=== PATIENT | female | born 1935 | race Caucasian/White ===

== ENCOUNTER 2016-05-02 19:22 | Emergency (ER) | payer MEDICARE, OTHER ==
[~2016-05-02] VITALS: Ht 165.1 cm; Wt 80.0 kg
[~2016-05-02 19:22] MED LIST: CALC500T42 PO; GLUC500C56 PO; METO50TA PO; PREM0.3T2 PO; TAB-TAB PO; VITA500T10 PO
[2016-05-02] MEDS ORDERED: LORazepam 2 MG/ML VIAL ONE (20:36)
[2016-05-02 20:41] VITALS: BP 186/83; PULSE 82; RESP 18; TEMP 98.5; O2SAT 99
[2016-05-02] MEDS ORDERED: ASPI325T PO (20:45)
[2016-05-02] MEDS ORDERED: LORazepam 2 MG/ML VIAL IM ONE (20:45)
[2016-05-02] MEDS ORDERED: METO50TA PO (20:45)
[2016-05-02] MEDS ORDERED: NAPR220T95 PO (20:45)
[2016-05-02] MEDS ORDERED: METO25TA3 PO (21:02)
[2016-05-02 21:32] LABS: AUTOMATED NEUTROPHIL # 5.6 TH/MM3 (1.8-7.7); BASOPHIL # 0.1 TH/MM3 (0-0.2); BASOPHIL % 0.9 % (0.0-2.0); EOSINOPHIL # 0.2 TH/MM3 (0-0.4); EOSINOPHIL % 1.7 % (0.0-4.0); HEMATOCRIT 39.7 % (35.0-46.0); HEMO FLAGS DIFF FINAL; LYMPH % 38.4 % (9.0-44.0); LYMPHOCYTE # 4.2 TH/MM3 (1.0-4.8); MEAN CELL VOLUME 95.8 FL (80.0-100.0); MEAN CORPUSCULAR HEMOGLOBIN 33.6 PG (27.0-34.0); MEAN CORPUSCULAR HGB CONC 35.1 % (32.0-36.0); MONO % 8.3 % (0.0-8.0); NEUT % 50.7 % (16.0-70.0); PLATELET COUNT 271 TH/MM3 (150-450); RED BLOOD COUNT 4.15 MIL/MM3 (4.00-5.30); RED CELL DISTRIBUTION WIDTH 13.7 % (11.6-17.2)
[2016-05-02 21:38] LABS: BLOOD, URINE NEG (NEG); COMMENT (UR) CULT NOT INDICATED; CULTURE IF INDICATED CULT NOT INDICATED; GLUCOSE,URINE NEG (NEG); KETONE, URINE NEG (NEG); MUCUS URINE FEW /lpf (OCC); NITRITE,URINE NEG (NEG); PH, URINE 6.5 (5.0-8.5); SQUAMOUS EPITHELIAL CELL URINE 1 /hpf (0-5); URINE COLOR YELLOW (YELLW/STRAW)
[2016-05-02 21:44] LABS: AMPHETAMINE, URINE NEG (NEG); BARBITURATES, URINE NEG (NEG); COCAINE, URINE NEG (NEG)
[2016-05-02 21:45] LABS: ACETAMINOPHEN LESS THAN 2.0 MCG/ML (10.0-30.0); ALKALINE PHOSPHATASE 78 U/L (45-117); ALT (GPT) 21 U/L (10-53); ANION GAP 10 MEQ/L (5-15); AST (GOT) 25 U/L (15-37); BICARBONATE 28.7 MEQ/L (21.0-32.0); BLOOD UREA NITROGEN 21 MG/DL (7-18); CHLORIDE 104 MEQ/L (98-107); GLOMERULAR FILTRATION RATE 50 ML/MIN (>89); SODIUM (NA) 143 MEQ/L (136-145); TOTAL BILIRUBIN ADULT 0.5 MG/DL (0.2-1.0)
[2016-05-02] MEDS ORDERED: METOPROLOL TARTRATE 25 MG TAB PO ONE (21:45)
--- NOTE | 2016-05-02 21:45 | PD ---
HPI Chief Complaint: Psychiatric Symptoms Time Seen by Provider: 20:31 Travel History International Travel<30 days: No Contact w/Intl Traveler<30days: No Traveled to known affect area: No History of Present Illness HPI 81yo F with PMH of HTN was brought in under Del Cid Act for suicidal ideation. She told her nurse from [facility] that she would take all of her pain pills to end her life if her care did not improve. Pt determined to be a threat to herself. Denies any complaints. Pt is very upset and yelling at staff so she was transferred from [facility] Past Medical History Arthritis: Yes Blood Disorders: No Cancer: No Cardiovascular Problems: No Diminished Hearing: No Endocrine: No Genitourinary: No Immune Disorder: No Implanted Vascular Access Dvce: Yes Musculoskeletal: Yes Neurologic: Yes Psychiatric: No Reproductive: No Respiratory: No Tetanus Vaccination: Unknown Past Surgical History Joint Replacement: Yes (RIGHT HIP) Neurologic Surgery: Yes (CERVICAL FUSION) Other Surgery: Yes Social History Alcohol Use: Yes (OCC WINE) Tobacco Use: No Substance Use: No Allergies-Medications (Allergen,Severity, Reaction): Coded Allergies: No Known Allergies (Verified , 03/04/13) Reported Meds & Prescriptions Reported Meds & Active Scripts Active Reported Metoprolol Tartrate 25 Mg Tab 12.5 Mg PO BID Aleve (Naproxen Sodium) 220 Mg Tab 220 Mg PO BID PRN Aspirin 325 Mg Tab 325 Mg PO DAILY Review of Systems Except as stated in HPI: all other systems reviewed are Neg Physical Exam Narrative Pt is refusing a physical exam. She does not appear to be in distress and no complaints. Data Data Last Documented VS Vital Signs Date Time Temp Pulse Resp B/P Pulse Ox O2 Delivery O2 Flow Rate FiO2 05/02/16 23:17 78 18 142/63 97 05/02/16 20:41 98.5 Orders Complete Blood Count With Diff (05/02/16 19:55) Comprehensive Metabolic Panel (05/02/16 19:55) Urinalysis - C+S If Indicated (05/02/16 19:55) Psych Screen (05/02/16 19:55) Drug Screen, Random Urine (05/02/16 19:55) Alcohol (Ethanol) (05/02/16 19:55) Salicylates (Aspirin) (05/02/16 19:55) Tylenol (Acetaminophen) (05/02/16 19:55) Lorazepam Inj (Ativan Inj) (05/02/16 20:45) Lorazepam Inj (Ativan Inj) (05/02/16 20:36) Metoprolol Tartrate (Lopressor) (05/02/16 21:45) Labs Laboratory Tests Test 05/02/16 05/02/16 20:40 20:45 Urine Color YELLOW Urine Turbidity HAZY Urine pH 6.5 Urine Specific [place] 1.020 Urine Protein NEG mg/dL Urine Glucose (UA) NEG mg/dL Urine Ketones NEG mg/dL Urine Occult Blood NEG Urine Nitrite NEG Urine Bilirubin NEG Urine Urobilinogen LESS THAN 2.0 MG/DL Urine Leukocyte Esterase TRACE Urine RBC LESS THAN 1 /hpf Urine WBC 1 /hpf Urine Squamous Epithelial 1 /hpf Cells Urine Mucus FEW /lpf Microscopic Urinalysis Comment CULT NOT INDICATED Urine Opiates Screen NEG Urine Barbiturates Screen NEG Urine Amphetamines Screen NEG Urine Benzodiazepines Screen POS Urine Cocaine Screen NEG Urine Cannabinoids Screen NEG White Blood Count 11.0 TH/MM3 Red Blood Count 4.15 MIL/MM3 Hemoglobin 13.9 GM/DL Hematocrit 39.7 % Mean Corpuscular Volume 95.8 FL Mean Corpuscular Hemoglobin 33.6 PG Mean Corpuscular Hemoglobin 35.1 % Concent Red Cell Distribution Width 13.7 % Platelet Count 271 TH/MM3 Mean Platelet Volume 8.8 FL Neutrophils (%) (Auto) 50.7 % Lymphocytes (%) (Auto) 38.4 % Monocytes (%) (Auto) 8.3 % Eosinophils (%) (Auto) 1.7 % Basophils (%) (Auto) 0.9 % Neutrophils # (Auto) 5.6 TH/MM3 Lymphocytes # (Auto) 4.2 TH/MM3 Monocytes # (Auto) 0.9 TH/MM3 Eosinophils # (Auto) 0.2 TH/MM3 Basophils # (Auto) 0.1 TH/MM3 CBC Comment DIFF FINAL Differential Comment Sodium Level 143 MEQ/L Potassium Level 4.1 MEQ/L Chloride Level 104 MEQ/L Carbon Dioxide Level 28.7 MEQ/L Anion Gap 10 MEQ/L Blood Urea Nitrogen 21 MG/DL Creatinine 1.06 MG/DL Estimat Glomerular Filtration 50 ML/MIN Rate Random Glucose 107 MG/DL Calcium Level 9.1 MG/DL Total Bilirubin 0.5 MG/DL Aspartate Amino Transf 25 U/L (AST/SGOT) Alanine Aminotransferase 21 U/L (ALT/SGPT) Alkaline Phosphatase 78 U/L Total Protein 7.5 GM/DL Albumin 4.1 GM/DL Salicylates Level LESS THAN 1.7 MG/DL Acetaminophen Level LESS THAN 2.0 MCG/ML Ethyl Alcohol Level LESS THAN 3 MG/DL MDM Medical Decision Making Medical Screen Exam Complete: Yes Emergency Medical Condition: Yes Differential Diagnosis Depression vs. delirium Narrative Course 81yo F with suicidal thoughts was brought here under Del Cid Act because she said she wants to end it all. VS stable. Pt is hypertensive and takes metoprolol which I gave her. Denies any complaints. Labs reviewed, no leukocytosis BUN/ creatinine mildly elevated at 21/1.06. UA negative. Culture not indicated. Alcohol, salicylate and acetaminophen negative. Benzodiazepine positive but I gave her ativan 1mg to calm her down. Pt was being a threat to herself and others. Pt is now more calm but still refusing physical exam. Del Cid Act lifted by psych. Diagnosis Primary Impression: Suicidal ideation Patient Instructions: General Instructions Departure Forms: Tests/Procedures Additional Instructions: Please return to the ED if symptoms worsen. Med/Other Pt SpecificInfo: No Change to Meds Disposition: 01 DISCHARGE HOME Condition: Stable Roslyn Roberson DO May 02, 2016 21:45
[2016-05-02 21:46] LABS: POTASSIUM 4.1 MEQ/L (3.5-5.1)
[2016-05-02 23:17] VITALS: BP 142/63
== END 2016-05-03 00:36 | disposition home or self-care (01) ==
LOC: NEPA 19:22
DX: R45.851 Suicidal ideations (principal); I10 Essential (primary) hypertension; M19.90 Unspecified osteoarthritis, unspecified site
CPT/HCPCS: 80053; 80307; 81001; 85025; 96372; 99283; J2060

== ENCOUNTER 2018-03-30 07:23 | Inpatient (IN) ==
[2018-03-30 09:19] LABS: Baso # (Auto) 0.1 th/mm3 (0.0-0.2); Baso % (Auto) 0.6 % (0.0-2.0); Eos # (Auto) 0.3 th/mm3 (0.0-0.4); Eos % (Auto) 2.6 % (0.0-4.0); Hematocrit 42.5 % (35.0-46.0); Lymph # (Auto) 4.6 th/mm3 (1.0-4.8); Lymph % (Auto) 44.4 % (9.0-44.0); Mean Corpuscular HGB Conc 32.9 % (32.0-36.0); Mean Corpuscular Volume 97.2 fL (80.0-100.0); Mean Platelet Volume 8.9 fL (7.0-11.0); Mono # (Auto) 0.6 th/mm3 (0.0-0.9); Mono % (Auto) 6.3 % (0.0-8.0); Neut # (Auto) 4.8 th/mm3 (1.8-7.7); Neut % (Auto) 46.1 % (16.0-70.0); Platelet Count 272 th/mm3 (150-450); Red Blood Count 4.37 mil/mm3 (4.00-5.30); Red Cell Distribution Width 14.7 % (11.6-17.2); White Blood Count 10.4 th/mm3 (4.0-11.0)
[2018-03-30 09:30] LABS: Alanine Aminotransferase 21 U/L (10-53); Albumin 3.8 g/dL (3.4-5.0); Anion Gap 6 meq/L (5-15); Aspartate Aminotransferase 24 U/L (15-37); Blood Urea Nitrogen 15 mg/dL (7-18); Calcium 8.6 mg/dL (8.5-10.1); Carbon Dioxide 28.4 meq/L (21.0-32.0); Chloride 109 meq/L (98-107); Glomerular Filtration Rate 68 mL/min (>89); Glucose,Random 89 mg/dL (74-106); Magnesium 2.5 mg/dL (1.5-2.5); Potassium 4.2 meq/L (3.5-5.1); Sodium 143 meq/L (136-145)
[2018-03-30 09:31] LABS: Alcohol 227 mg/dL (0-5)
[2018-03-30 09:40] LABS: Alkaline Phosphatase 91 U/L (45-117); Thyroid Stimulating Hormone 0.891 uIU/mL (0.358-3.740); Total Protein 7.5 g/dL (6.4-8.2)
--- NOTE | 2018-03-30 10:04 | ED ---
HPI General Chief complaint: Chest Pain Stated complaint: PSYCH/VCSO Time Seen by Provider: 03/30/18 08:35 Source: EMS Mode of arrival: EMS History of Present Illness HPI narrative: Patient is an 83 year old female BIBEMS and police under a BA. Per BA, patient was found on the ground at her house. She was uncooperative and refusing to allow for medical care. Per BA form, EMS/fire had been called to her house several times in the past two days for similar issues. Patient says she drank blackberry ny, which she drinks every night to go to sleep. She denies any pain or medical complaints. She is very agitated and says she does not want to be here. Severity is mild. Related Data Home Medications Medication Instructions Recorded Confirmed metoprolol succinate 25 mg PO BID 03/30/18 03/30/18 Allergies Allergy/AdvReac Type Severity Reaction Status Date / Time No Known Allergies Allergy Verified 03/30/18 08:16 Review of Systems ROS: all other systems reviewed are negative Constitutional Denies chills and Denies fever(s) ENT Denies dizziness Cardiovascular Denies chest pain and Denies dyspnea Respiratory Denies cough and Denies dyspnea Gastrointestinal Denies abdominal pain, Denies nausea and Denies vomiting Musculoskeletal Denies myalgias and Denies arthralgias Integumentary/Breasts Denies sores and Denies wounds Neurologic Denies focal weakness and Denies numbness PMFSH Social History Social History Substance History: Unable to Obtain Smoking Status: Refused to answer How Often Do You Have a Drink Containing Alcohol: 4 or more times a week Immunization History Tetanus Immunization: Unable to Assess Exam Narrative Exam Narrative: GENERAL: Awake and alert, uncooperative and agitated. SKIN: Focused skin assessment warm/dry. HEAD: Atraumatic. Normocephalic. EYES: Pupils equal and round and reactive. No scleral icterus. No injection or drainage. ENT: Mucous membranes pink and moist. NECK: Trachea midline. No JVD. CARDIOVASCULAR: Regular rate and rhythm. No murmur appreciated. RESPIRATORY: No accessory muscle use. Clear to auscultation. Breath sounds equal bilaterally. GASTROINTESTINAL: Abdomen soft, non-tender, nondistended. MUSCULOSKELETAL: No obvious deformities. No clubbing. No cyanosis. No edema. NEUROLOGICAL: Awake and alert. No obvious cranial nerve deficits. Motor grossly within normal limits. Normal speech. PSYCHIATRIC: Appropriate mood and affect; insight and judgment normal. Course Initial Documented Vital Signs Pulse Rate 62 03/30/18 08:11 Respiratory Rate 24 03/30/18 08:11 Blood Pressure 138/93 H 03/30/18 08:11 Last Documented Vital Signs Pulse Rate 68 03/30/18 19:14 Respiratory Rate 18 03/30/18 19:14 Blood Pressure 176/78 H 03/30/18 19:14 Pulse Oximetry 96 03/30/18 19:14 Medical Decision Making MDM Narrative Medical decision making narrative: Patient is an 83-year-old female who comes in under a Del Cid act. She has no medical complaints at this time. IV established, labs sent. Labs show an elevated alcohol level, no other acute abnormalities. Patient is agitated, uncooperative, refusing to stay in the bed or in the room. She had to be restrained and given sedation. She will be medically cleared for psychiatric evaluation. Medical Screen Exam Complete: Yes Emergency Medical Condition: Yes Differential Diagnosis Differential Diagnosis: Psychosis versus intoxication versus electrolyte abnormality Medical Records Medical records reviewed: Yes I reviewed the patient's medical records. Lab Data Lab results reviewed: Yes I reviewed the patient's lab results. Result diagrams: 03/30/18 07:40 03/30/18 07:40 Lab Results 03/30/18 03/30/18 Range/Units 07:40 07:40 WBC 10.4 (4.0-11.0) th/mm3 RBC 4.37 (4.00-5.30) mil/mm3 Hgb 14.0 (11.6-15.3) gm/dL Hct 42.5 (35.0-46.0) % MCV 97.2 (80.0-100.0) fL MCH 32.0 (27.0-34.0) pg MCHC 32.9 (32.0-36.0) % RDW 14.7 (11.6-17.2) % Plt Count 272 (150-450) th/mm3 MPV 8.9 (7.0-11.0) fL Neut % (Auto) 46.1 (16.0-70.0) % Lymph % (Auto) 44.4 H (9.0-44.0) % [place] % (Auto) 6.3 (0.0-8.0) % Eos % (Auto) 2.6 (0.0-4.0) % Baso % (Auto) 0.6 (0.0-2.0) % Neut # (Auto) 4.8 (1.8-7.7) th/mm3 Lymph # (Auto) 4.6 (1.0-4.8) th/mm3 [place] # (Auto) 0.6 (0.0-0.9) th/mm3 Eos # (Auto) 0.3 (0.0-0.4) th/mm3 Baso # (Auto) 0.1 (0.0-0.2) th/mm3 WBC Differential . Differential Comment Auto diff final Sodium 143 (136-145) meq/L Potassium 4.2 (3.5-5.1) meq/L Chloride 109 H (98-107) meq/L Carbon Dioxide 28.4 (21.0-32.0) meq/L Anion Gap 6 (5-15) meq/L BUN 15 (7-18) mg/dL Creatinine 0.81 (0.50-1.00) mg/dL Estimated GFR 68 L (>89) mL/min Random Glucose 89 (74-106) mg/dL Calcium 8.6 (8.5-10.1) mg/dL Magnesium 2.5 (1.5-2.5) mg/dL Total Bilirubin 0.4 (0.2-1.0) mg/dL AST 24 (15-37) U/L ALT 21 (10-53) U/L Alkaline Phosphatase 91 (45-117) U/L Total Protein 7.5 (6.4-8.2) g/dL Albumin 3.8 (3.4-5.0) g/dL TSH 0.891 (0.358-3.740) uIU/mL Serum Alcohol 227 H (0-5) mg/dL Discharge Plan Discharge Disposition Patient Disposition: ED Admit(ED Internal Use Only) Discharge Order Discharge Orders: ED Use Only Admit Order (Routine); Ordered 03/30/18 Ordered By: Kaushik Machado Physicians Team ED Provider: Dilma James Primary Care Provider: Tana Singleton Attending Provider: Sancho,Alexander B Discharge Interventions Interventions: Vital Signs Last Done: 03/30/18 19:00 ED Discharge Assessment Last Done: 03/30/18 20:02 Discharge Planning - Case Management Last Done: 03/30/18 15:03 Status ED Status: Admitted Patient
[2018-03-30] MEDS ORDERED: Sod Chloride 0.9% Inj 1,000 ML IV.SIG SCH (10:15)
[2018-03-30] MEDS ORDERED: Metoprolol Tartrate 25 MG Tablet PO ONE (15:04)
--- NOTE | 2018-03-30 19:08 | ED ---
HPI - Psych - General Source: EMS Mode of arrival: EMS Limitations: no limitations - History of Present Illness MD complaint: altered mental status Onset (ago): hour(s) Duration: changing over time History of same: Yes Exacerbating factors: none Context: recent alcohol abuse, not taking psychiatric medications Associated psychiatric symptoms: none Associated symptoms: confusion Treatments prior to arrival: none - General Chief Complaint: Chest Pain Stated Complaint: PSYCH/VCSO Time Seen by Provider: 03/30/18 08:35 - History of Present Illness HPI Narrative: Patient is a 83 years old female that was brought to the ED by the EMS on a Del Cid act initiated by the police. The reported stated the EMS service of being call multiple times in the last 2 days about patient found on the floor confused and refusing treatment. The patient was assessed in her cubicle and she appears alert but mostly confused. She stated that she is at a restaurant and people are bringing the children to have lunch. Her remote memory appears to be intact and she is able to give an accurate history about herself and the care of her who is elderly and disabled. The patient admits to drinking alcohol every day but she minimized the quantity. He stated that there is nothing wrong with drinking daily and that she always has alcohol in her house. Patient was observed getting out of bed and searching for a toilet that was not there. Presented patient does not appears to be experiencing any alcohol withdrawal symptoms but remains confused. Evidence that the patient is experiencing any auditory or visual hallucinations. It is evidence that the patient has poor insight into her chronic alcohol dependence. She is receptive to the idea of being admitted on the inpatient unit for further management of her possible withdrawal symptoms. (Kaushik Machado) - Related Data Home Medications Medication Instructions Recorded Confirmed metoprolol succinate 25 mg PO BID 03/30/18 03/30/18 Allergies Allergy/AdvReac Type Severity Reaction Status Date / Time No Known Allergies Allergy Verified 03/30/18 08:16 PMF - History History Provided By: Patient - Tobacco History Smoking Status: Refused to answer - Alcohol History How Often Do You Have a Drink Containing Alcohol: 4 or more times a week - Substance Use History Substance History: Unable to Obtain - Immunization History Tetanus Immunization: Unable to Assess Psychiatric History - Psychiatric History History of Inpatient Treatment: No Firearms in Home: No - Psychiatric History Unable to verify (Kaushik Machado) - Legal History Unable to verify (Kaushik Machado) - Family Psychiatric History Unable to verify (Kaushik Machado) Mental Status Examination Consciousness: Alert Affect: Appropriate Initial Documented Vital Signs Pulse Rate 62 03/30/18 08:11 Respiratory Rate 24 03/30/18 08:11 Blood Pressure 138/93 H 03/30/18 08:11 Last Documented Vital Signs Pulse Rate 68 03/30/18 19:14 Respiratory Rate 18 03/30/18 19:14 Blood Pressure 176/78 H 03/30/18 19:14 Pulse Oximetry 96 03/30/18 19:14 [facility] - Psych - Lab Data Result diagrams: 03/30/18 07:40 03/30/18 07:40 - [facility] Narrative Medical decision making narrative: This advanced age patient has a history of chronic alcohol dependence and she came into the ED intoxicated with a serum alcohol level 227 mg/dl. Present, the patient remains confused and agitated. The patient is living with her 85 years old who is disabled and unable to care for himself. Visiting nursing service is in place to provide care for her . Patient has no strong supportive resource at home and therefore she needs hospitalization to treat her present alcohol dependence and possible withdrawal symptoms. The patient will be admitted on [facility] the med psych unit and she will be closely monitored on a [facility] protocol. (Kaushik Machado) - Lab Data Lab Results 03/30/18 03/30/18 Range/Units 07:40 07:40 WBC 10.4 (4.0-11.0) th/mm3 RBC 4.37 (4.00-5.30) mil/mm3 Hgb 14.0 (11.6-15.3) gm/dL Hct 42.5 (35.0-46.0) % MCV 97.2 (80.0-100.0) fL MCH 32.0 (27.0-34.0) pg MCHC 32.9 (32.0-36.0) % RDW 14.7 (11.6-17.2) % Plt Count 272 (150-450) th/mm3 MPV 8.9 (7.0-11.0) fL Neut % (Auto) 46.1 (16.0-70.0) % Lymph % (Auto) 44.4 H (9.0-44.0) % [place] % (Auto) 6.3 (0.0-8.0) % Eos % (Auto) 2.6 (0.0-4.0) % Baso % (Auto) 0.6 (0.0-2.0) % Neut # (Auto) 4.8 (1.8-7.7) th/mm3 Lymph # (Auto) 4.6 (1.0-4.8) th/mm3 [place] # (Auto) 0.6 (0.0-0.9) th/mm3 Eos # (Auto) 0.3 (0.0-0.4) th/mm3 Baso # (Auto) 0.1 (0.0-0.2) th/mm3 WBC Differential . Differential Comment Auto diff final Sodium 143 (136-145) meq/L Potassium 4.2 (3.5-5.1) meq/L Chloride 109 H (98-107) meq/L Carbon Dioxide 28.4 (21.0-32.0) meq/L Anion Gap 6 (5-15) meq/L BUN 15 (7-18) mg/dL Creatinine 0.81 (0.50-1.00) mg/dL Estimated GFR 68 L (>89) mL/min Random Glucose 89 (74-106) mg/dL Calcium 8.6 (8.5-10.1) mg/dL Magnesium 2.5 (1.5-2.5) mg/dL Total Bilirubin 0.4 (0.2-1.0) mg/dL AST 24 (15-37) U/L ALT 21 (10-53) U/L Alkaline Phosphatase 91 (45-117) U/L Total Protein 7.5 (6.4-8.2) g/dL Albumin 3.8 (3.4-5.0) g/dL TSH 0.891 (0.358-3.740) uIU/mL Serum Alcohol 227 H (0-5) mg/dL
[2018-03-30] MEDS ORDERED: Aluminum/Magnesium/Simethacone Susp 30 ML UDC PO PRN (19:14)
[2018-03-30] MEDS: LORazepam 1 MG Tablet PO PRN (21:49)
[2018-03-31 06:32] LABS: Amphetamine Screen,Urine Neg (Neg); Barbiturate Screen,Urine Neg (Neg); Cannabinoid Screen,Urine Neg (Neg); Cocaine Screen,Urine Neg (Neg)
[2018-03-31 06:36] LABS: Opiate Screen,Urine Neg (Neg)
--- NOTE | 2018-03-31 18:02 | P.HPPSY ---
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 Express and informed consent means consent voluntarily given in writing, by a competent person, after sufficient explanation and disclosure of the subject matter involved to enable the person to make a knowing and willful decision without any element of force, fraud, deceit, duress, or other form of constraint or coercion. This person is 18 years of age or older, is not now known to be incompetent to consent to treatment with a guardian advocate, and does not have a health care surrogate or proxy currently making medical treatment decisions. I have found this person to be one of the following: [] Competent to provide express and informed consent, as defined above, for voluntary admission to this facility and is competent to provide express and informed consent for treatment. He/she has the consistent capacity to make well reasoned, willful, and knowing decisions concerning his or her medical or mental health treatment. The person fully and consistently understands the purpose of the admission for examination/placement and is fully capable of personally exercising all rights assured under [place] [] Incompetent to provide express and informed consent to voluntary admission, and this is incompetent to provide express and informed consent to treatment. The person must be transferred to involuntary status and a petition for a guardian advocate filed with the Circuit Court. [] Refusing to provide express and informed consent to voluntary admission but is competent to provide express and informed consent for treatment. The person must be discharged or transferred to involuntary status. Form shall be completed within 24 hours of a person's arrival at the receiving facility and filed in the clinical record of each person: 1. Admitted on a voluntary basis 2. Permitted to provide express and informed consent to his/her own treatment 3. Allowed to transfer from involuntary to voluntary status 4. Prior to permitting a person to consent to his or her own treatment after having been previously found incompetent to consent to treatment. History of Present Illness Capacity: Has capacity Chief Complaint: This place is filthy! Luciana done nothing wrong History of Present Illness: Pt seen and discussed with nursing staff. Chart reviewed. Pt is an 83 YOWF with no previous psychiatric history who was admitted to [facility] under a BA after pt was found down on the floor by EMS/fire department and refused medical treatment and became combative. EMS had been called to pt's home multiple times this week for similar presentation. She was agitated and confused in the ED and thought that she was at a restaurant. BAL was 277. Pt was placed on CIWA and received two doses of ativan last night for positive CIWA score. She reports that she drinks "a nip or two" of blackberry ny for sleep. She denies any problems with alchohol and states that EMS became upset when they saw the number of liquor bottles in the house. She states that EMS has been out to her home over a 100 times for falls. "What else do they have to do? Ride around on the fire truck?" She is angry and irritable and states that she is probably going to get bedbugs if she does not get home soon. She denies any hx of psychiatric illness. She is oriented to self, month and year. She states that she is at a place" where people go for help" She knows current president but can't remember previous president. MMSE score was 23/30. She requested that MD talk to her spouse immediately. Pt's spouse reports that EMS had to come to home 3 times in one night and 2 times in one night this week to get pt off of the floor where she had fallen out of bed. He states that EMS are "very nice helpful people" but pt kept insisting to be put back in bed and finally they insisted that she go to the hospital for medical attention and she became combative with them. "She thought she was defending herself." He states that pt drinks blackberry ny "constantly" in order to go to sleep. "She pours small glasses, but it does add up." He denies any previous psychiatric hx or substance abuse issues. He states that pt has been angry, frustrated and verbally combative lately. He states that she is upset because he hired someone to come in and assist him with ADLs because he hurt his back after a fall and needs help. He states that his is unable to help him due to her own mobility issues but does not want anyone else in the home. Spouse states that he has been trying to convince his that they need to move into assisted living or hire additional caregivers. He states that he recently gave up driving which further limits them. He states that he does have a school bus driver/mechanic that he can hire to get them where they need to go, but he feels with there health problems they should downsize but pt is vehemently opposed. He states that their adult children are concerned about them and are supportive of them moving to an [facility]. He repeatedly states that pt is a good person, but he is very concerned about her safety given the number of falls that she has had and her anger. He states that she has been under immense stress dealing with his health problems and he is worried about her. "She is a wonderful person. We have been 63 years." SH: for 63 years, two adult children, son lives in [place] and visits frequently to help out. 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 This includes certification that hospital inpatient services are reasonable and necessary and in the case of services not specified as inpatient-only under 42 CFR 419.22(n), that they are appropriately provided as inpatient services in accordance to with the 2-midnight benchmark under 43 CFR 412.3(e) I certify that inpatient psychiatric hospital services are medically necessary. Evaluation and treatment and/or diagnostic testing are expected to improve the patient's condition. The patient needs on a daily basis, active treatment furnished directly by or requiring the supervision of inpatient psychiatric facility personnel. Estimated Total Length of Stay (Days): 7 Plans for Post Hospital Care: Not yet determined Review of Systems Psychiatric: Reports irritability PMFSH - History History Provided By: Patient, Significant Other, Medical Record - Medical History Medical History: Medical History (Last Updated 03/31/18 @ 20:39 by Gisela Russell MD) Arthritis Hypertension - Surgical History Surgical History: Surgical History (Last Updated 03/31/18 @ 20:39 by Gisela Russell MD) History of neck surgery - Family History Family History: Family History (Last Updated 03/31/18 @ 20:39 by Gisela Russell MD) Other No pertinent family history - Social History I have reviewed the patient's Social History: Yes - Tobacco History Second Hand Smoke Exposure: No Smoking Status: Refused to answer - Alcohol History How Often Do You Have a Drink Containing Alcohol: 4 or more times a week - Substance Use History Substance History: Active Abuse - Substance Use Type Alcohol Status: Active Route Used: By Mouth Frequency: daily Last Used: yesterday Reason for Use: Sleep - Travel History Recent Travel in the [place] Within the Last 8 Weeks: No Recent Travel Out of the Country Within the Last 8 Weeks: No - Immunization History Tetanus Immunization: Unable to Assess Hx Influenza Vaccine This Season: No Quality Measures - Psychiatric History Psychological trauma history: denies Violence risk to others in the last 6 months: combative with EMS yesterday Violence risk to self in the last 6 months: denies - Substance Abuse History Drug or alcohol use in the past 12 months: yes. nightly use of ny with frequent falls. - Patient Strengths Patient's strengths (minimum of 2): supportive spouse, access to healthcare Medications and Allergies Active Medications: Active Medications Al Hydrox/Mg Hydrox/Simethicone (Mag-Al Plus Susp Liq) 30 ml PO Q6H PRN PRN Reason: DYSPEPSIA Ibuprofen (Motrin) 800 mg PO Q6H PRN PRN Reason: PAIN Last Admin: 03/31/18 10:02 Dose: 800 mg Lorazepam (Ativan) 1 mg PO Q4H PRN PRN Reason: for CIWA 8-10 Last Admin: 03/30/18 21:49 Dose: 1 mg Lorazepam (Ativan) 2 mg PO Q2H PRN PRN Reason: for CIWA 11-14 Last Admin: 03/31/18 00:08 Dose: 2 mg Metoprolol Succinate (Toprol Xl) 25 mg PO BID LIVIER Last Admin: 03/31/18 11:16 Dose: 25 mg Sennosides (Senokot) 17.2 mg PO Q12H PRN PRN Reason: Moderate Constipation Allergies Allergy/AdvReac Type Severity Reaction Status Date / Time No Known Allergies Allergy Verified 03/30/18 08:16 Home Medications Medication Instructions Recorded Confirmed Type metoprolol succinate 25 mg PO BID 03/30/18 03/30/18 History Results - Labs CBC & Chem 7: 03/30/18 07:40 03/30/18 07:40 Labs: Laboratory Results - last 24 hr 03/31/18 02:00 Urine Opiates Screen Neg Ur Barbiturates Screen Neg Ur Amphetamines Screen Neg U Benzodiazepines Scrn Pos H Urine Cocaine Screen Neg U Cannabinoids Screen Neg Exam Vital signs: Vital Signs 03/30/18 19:00 03/30/18 19:14 03/30/18 21:00 Temperature 98.3 F Pulse Rate 68 73 Respiratory Rate 18 18 18 Blood Pressure 176/78 H 172/77 H Pulse Oximetry 96 97 03/31/18 01:00 03/31/18 06:00 03/31/18 11:19 Temperature 98.1 F Pulse Rate 74 80 100 H Respiratory Rate 18 Blood Pressure 161/70 H 170/76 H Pulse Oximetry 96 97 Intake & Output 03/30/18 03/31/18 03/31/18 18:59 06:59 18:59 Intake Total 1000 / 1000 1440 / 1440 Balance 1000 / 1000 1440 / 1440 Weight 81.647 kg 61.235 kg Intake: IV 1000 / 1000 NS Inj 1,000 ML @ 1000 mls/hr 1000 / 1000 IV.SIG BOLUS LIVIER Rx#:[id number] Oral 1440 / 1440 Other: Weight On Admission 61.235 kg Mental Status Examination Appearance: Disheveled, Other (dressed in hospital gown) Consciousness: Alert Orientation: Person, Place ("place where you go if you need help"), Date/Time ( month and year), Situation Motor Activity: Other (ambulates with walker) Speech: Unremarkable Language: Adequate Fund of Knowledge: Adequate Attention and Concentration: Adequate Memory: Impaired Mood: Irritable Affect: Irritable Thought Process & Associations: Linear Thought Content: Appropriate Hallucination Type: None Delusion Type: None Suicidal Ideation: No Suicidal Plan: No Suicidal Intention: No Homicidal Ideation: No Homicidal Plan: No Insight: Poor Judgment: Impulsive Assessment and Plan - Assessment (1) Alcohol use disorder, severe, dependence Code(s): F10.20 - Alcohol dependence, uncomplicated Status: Acute (2) Adjustment disorder with mixed disturbance of emotions and conduct Code(s): F43.25 - Adjustment disorder with mixed disturbance of emotions and conduct Status: Acute - Plan Plan: Estimated LOS: [] days Will uphold BA due to self neglect and risks due to untreated alcohol use disorder. Continue CIWA protocol. Pt appears to have some sort of memory impairment which may be due to alcohol abuse. Will determine if dementing process is present. Family meeting to determine safe discharge plans. Spouse is on board with [facility] placement. Justification for Continued Inpatient Stay: self neglect
[2018-03-31] MEDS: LORazepam 1 MG Tablet PO PRN (20:10)
[2018-04-01] MEDS: LORazepam 1 MG Tablet PO PRN (05:24)
--- NOTE | 2018-04-01 14:57 | P.PNPSY ---
Subjective Chief Complaint: Follow-up treatment of mental status changes with assaultive behavior Remarks: Patient seen for follow-up, chart reviewed, patient discussed with nursing staff ; we reviewed the patient's mood, thoughts, and behaviors from overnight and this morning. Nurse reports that the patient was restless overnight but seem to get 6 hours of sleep. She continues to be angry and loud and demanding discharge. She is being followed with a CIWA for alcohol withdrawal. Her blood pressures have been elevated but she has been recently restarted on her outpatient blood pressure medications. The patient was seen at bedside as well as observed sitting in the day room. She was angry and continued to perseverate on how "terrible" the facility was and demanded that she be discharged immediately. The patient was repeatedly explained that she was going to be here for continued observation due to her risks of alcohol withdrawal and recent combative behavior with medical staff. Patient demonstrated logical thinking and appropriate recall of recent events despite her lack of insight as to the continued risk of harm to herself by excessive alcohol use and recurrent falls. Patient denies active suicidal or homicidal ideations and she denies any delusions. Mental Status Examination Appearance: Disheveled, Other (dressed in hospital gown) Consciousness: Alert Orientation: Person, Place ("place where you go if you need help"), Date/Time ( month and year), Situation Motor Activity: Other (ambulates with walker) Speech: Unremarkable Language: Adequate Fund of Knowledge: Adequate Attention and Concentration: Adequate Memory: Impaired Mood: Irritable Affect: Irritable Thought Process & Associations: Linear Thought Content: Appropriate Hallucination Type: None Delusion Type: None Suicidal Ideation: No Suicidal Plan: No Suicidal Intention: No Homicidal Ideation: No Homicidal Plan: No Insight: Poor Judgment: Impulsive Assessment and Plan - Assessment (1) Alcohol use disorder, severe, dependence Code(s): F10.20 - Alcohol dependence, uncomplicated Status: Acute (2) Adjustment disorder with mixed disturbance of emotions and conduct Code(s): F43.25 - Adjustment disorder with mixed disturbance of emotions and conduct Status: Acute - Plan Plan: April 01, 2018: Fair response to inpatient treatment, the patient's alcohol withdrawal symptoms are well controlled and she has not been combative with staff or peers. Her attitude remains hostile and mood is angry but thought processes are organized and no signs of psychosis. The patient's alcohol abuse represents a definite risk to her health and well-being especially in the context of her worsening debility and increased risk for falls but it does not represent a primary psychiatric diagnosis that would lead to continued involuntary treatment. The patient's has expressed concern with his ability to care for himself and his and would like for the 2 to pursue LONG-TERM placement but the patient repeatedly refuses this option. Without evidence that the patient lacks capacity for decision-making, we will likely need to discharge patient home despite her poor judgment. Continue inpatient psychiatric treatment and observation, involuntary status. Continue alcohol withdrawal with the CIWA protocol. Continue treatment with metoprolol for hypertension and consider adjunctive treatment if blood pressures remain elevated. Discharge planning: Anticipate discharge tomorrow after coordination of safety plan and discharge plan with her spouse. Justification for Continued Inpatient Stay: Patient remains an elevated risk for self-harm by self neglect and will require further inpatient stabilization and preparation of a safe discharge plan. Moving patient to a less restrictive environment at this time may result in decompensation.
[2018-04-02] MEDS: LORazepam 1 MG Tablet PO PRN (04:51)
[2018-04-02 05:59] VITALS: BP 176/79; PULSE 76; TEMP 97.8; O2SAT 97
[2018-04-02 09:13] VITALS: RESP 16
--- NOTE | 2018-04-02 11:57 | P.DSPSY ---
Psychiatry Discharge Summary Inpatient Psychiatric care?: Yes Advance Directives: No Mental Health Advance Directive: No Health Care Proxy: No - Admission Admission Date: March 30, 2018 19:20 - Admission Diagnosis (1) Alcohol use disorder, severe, dependence Code(s): F10.20 - Alcohol dependence, uncomplicated (2) Adjustment disorder with mixed disturbance of emotions and conduct Code(s): F43.25 - Adjustment disorder with mixed disturbance of emotions and conduct Brief History: Pt seen and discussed with nursing staff. Chart reviewed. Pt is an 83 YOWF with no previous psychiatric history who was admitted [place] [facility] [place] BA after pt was found down on the floor by EMS/fire department and refused medical treatment and became combative. EMS had been called to pt's home multiple times this week for similar presentation. She was agitated and confused in the ED and thought that she was at a restaurant. BAL was 277. Pt was placed on CIWA and received two doses of ativan last night for positive CIWA score. She reports that she drinks "a nip or two" of blackberry ny for sleep. She denies any problems with alchohol and states that EMS became upset when they saw the number of liquor bottles in the house. She states that EMS has been out to her home over a 100 times for falls. "What else do they have to do? Ride around on the fire truck?" She is angry and irritable and states that she is probably going to get bedbugs if she does not get home soon. She denies any hx of psychiatric illness. She is oriented to self, month and year. She states that she is at a place" where people go for help" She knows current president but can't remember previous president. MMSE score was 23/30. She requested that MD talk to her spouse immediately. Pt's spouse reports that EMS had to come to home 3 times in one night and 2 times in one night this week to get pt off of the floor where she had fallen out of bed. He states that EMS are "very nice helpful people" but pt kept insisting to be put back in bed and finally they insisted that she go to the hospital for medical attention and she became combative with them. "She thought she was defending herself." He states that pt drinks blackberry ny "constantly" in order to go to sleep. "She pours small glasses, but it does add up." He denies any previous psychiatric hx or substance abuse issues. He states that pt has been angry, frustrated and verbally combative lately. He states that she is upset because he hired someone to come in and assist him with ADLs because he hurt his back after a fall and needs help. He states that his is unable to help him due to her own mobility issues but does not want anyone else in the home. Spouse states that he has been trying to convince his that they need to move into assisted living or hire additional caregivers. He states that he recently gave up driving which further limits them. He states that he does have a hazardous materials driver that he can hire to get them where they need to go, but he feels with there health problems they should downsize but pt is vehemently opposed. He states that their adult children are concerned about them and are supportive of them moving to an [facility]. He repeatedly states that pt is a good person, but he is very concerned about her safety given the number of falls that she has had and her anger. He states that she has been under immense stress dealing with his health problems and he is worried about her. "She is a wonderful person. We have been 63 years." SH: for 63 years, two adult children, son lives in [place] and visits frequently to help out. 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 She is alert and oriented cooperative. Denying any past history of mental health issues denies past psychiatric medications hospitalizations or psychiatric follow-up. She denies any past issues with alcohol use, denies drug use. States that she will occasionally have a blackberry ny leave the evening to help her sleep. Though the day or so prior she bought some [id number] sleep aids and is mixing those with her booze. Perhaps this led to the behaviors leading to this hospitalization. In any event at this time patient does not meet [place] act criteria. She is able contract to do no harm. She has some small insight into the role that alcohol plays in her life. She lives with her of over 60 years. They do seem to drink together. As mentioned patient to be discharged today, no Rx by me, may continue on home scheduled medications, would recommend absolute sobriety and referral to AA, otherwise follow-up PCP for her hypertension and other medical issues - Discharge Discharge Date: 04/02/18 - Discharge Diagnosis (1) Alcohol use disorder, severe, dependence Diagnosis: Principal Code(s): F10.20 - Alcohol dependence, uncomplicated Status: Acute (2) Adjustment disorder with mixed disturbance of emotions and conduct Diagnosis: Principal Code(s): F43.25 - Adjustment disorder with mixed disturbance of emotions and conduct Status: Acute Discharge Disposition: Home - Discharge Instructions Discharge Diet: Regular Diet Activities You Can Perform: Regular- No Restrictions - Discharge Time > 30 minutes Mental Status Examination Appearance: Disheveled, Other (dressed in hospital gown) Consciousness: Alert Orientation: Person, Place ("place where you go if you need help"), Date/Time ( month and year), Situation Motor Activity: Other (ambulates with walker) Speech: Unremarkable Language: Adequate Fund of Knowledge: Adequate Attention and Concentration: Adequate Memory: Impaired Mood: Irritable Affect: Irritable Thought Process & Associations: Linear Thought Content: Appropriate Hallucination Type: None Delusion Type: None Suicidal Ideation: No Suicidal Plan: No Suicidal Intention: No Homicidal Ideation: No Homicidal Plan: No Insight: Poor Judgment: Impulsive Discharge/Advance Care Plan - Results Vital Signs: Last Vital Signs Temp 97.8 F 04/02/18 05:58 Pulse 76 04/02/18 05:58 Resp 16 04/02/18 09:00 BP 176/79 H 04/02/18 05:58 Pulse Ox 97 04/02/18 05:58 Lab Results: Laboratory Results TSH 0.891 uIU/mL (0.358-3.740) 03/30/18 07:40 Summary of Procedures: None done Pending Results: None - Medications Number of antipsychotic medications at discharge: 0 - Discharge Care Plan Goals to Promote Your Health: * To prevent worsening of your condition and complications * To maintain your health at the optimal level Directions to Meet Your Goals: Take your medications as prescribed Follow your dietary instruction Follow activity as directed Keep your appointments as scheduled Take your immunizations and boosters as scheduled If your symptoms worsen call your PCP, if no PCP go to Urgent Care Center or Emergency Room For 29/08 questions related to your inpatient stay or results of tests pending at discharge, please contact Dr. Alex Montoya MD at Smoking is Dangerous to Your Health. Avoid second hand smoking
== END 2018-04-02 16:00 | disposition home or self-care (01) | DRG 882 ==
LOC: NEPD 07:23 → NEDA 19:20 → H4EA 20:01 → H260 03-31 15:00
PROVIDERS: ADMIT Psychiatry & Neurology Psychiatry; ATTEND Psychiatry & Neurology Psychiatry
CPT/HCPCS: 80053; 80307; 83735; 84443; 85025; 90761; 90772; 90774; 90775; 90782; 90784; 90791; 96361; 96372; 96374; 96375; 97110; 97116; 97162; 99285; C8952; C9204; J1200; J2060; J2250; J3486; J7030